=== PATIENT | female | born 1970 | race Caucasian/White ===

== ENCOUNTER → 2020-10-13 | Day surgery (SDC) | payer OTHER ==
[~2020-10-13] MED LIST: CYANOCOBAL1000 MCG/1 INJ; DIPROSONE 0.05%15 G1 EXT; HYDROCHLOROTH12.5 MG PO; IBU800 MG PO; K-TAB ER10 MEQ PO; LEVOCETIRIZINE D5 MG PO; LISINOPRIL5 MG PO; OMEGA RED PO; SYNTHROID88 MCG PO; VITAMIN D21250 MCG PO
== END | disposition home or self-care (01) ==
LOC: OR 07:51
PROVIDERS: Surgery
PROC: 0DJD8ZZ Inspection of Lower Intestinal Tract, Via Natural or Artificial Opening Endoscopic (ICD-10-PCS; principal; 2020-10-13 08:45)
DX: Z12.11 Encounter for screening for malignant neoplasm of colon (principal); K57.30 Diverticulosis of large intestine without perforation or abscess without bleeding; I10 Essential (primary) hypertension; E03.9 Hypothyroidism, unspecified; Z20.822 Contact with and (suspected) exposure to COVID-19; Z79.899 Other long term (current) drug therapy
CPT/HCPCS: J7030